=== PATIENT | female | born 1990 | race Caucasian/White ===

== ENCOUNTER 2023-05-12 06:50 | Inpatient (IN) | payer MEDICAID ==
[~2023-05-12] VITALS: Ht 162.6 cm; Wt 92.1 kg
[2023-05-12 10:15] VITALS: BP 117/75; TEMP 98.6; O2SAT 97
[2023-05-12] MEDS ORDERED: ACETAMINOPHEN 325 MG TABLET PO PRN (13:00)
[2023-05-12] MEDS ORDERED: ONDANSETRON HCL/PF 4 MG/2 ML VIAL IVP PRN (13:00)
[2023-05-12] MEDS ORDERED: MAGNESIUM HYDROXIDE 30 ML UDC PO PRN (13:00)
[2023-05-12] MEDS ORDERED: MORPHINE SULFATE INJ 2 MG/ML DISP.SYRIN IV PRN (13:00)
[2023-05-12] MEDS: IV D5/0.45 NACL 1,000 ML IV PRN (13:05)
[2023-05-12 16:00] VITALS: BP 109/72; TEMP 98.6; O2SAT 97
[2023-05-12 16:37] LABS: CALCIUM, SERUM 8.5 mg/dL (8.5-10.1); CREATININE 0.7 mg/dL (0.6-1.3); POTASSIUM 3.6 mmol/L (3.5-5.1)
[2023-05-12] MEDS: PIPERACILLIN /TAZOBACTAM 3.375 G in IV D5W 100 ML IV SCH (17:11)
[2023-05-12] MEDS ORDERED: PIPERACILLIN /TAZOBACTAM 3.375 G in IV D5W 50 ML IV SCH (18:00)
[2023-05-12 20:00] VITALS: BP 149/100; TEMP 97.7; O2SAT 98
[2023-05-13] MEDS ORDERED: PANTOPRAZOLE 40 MG VIAL IV SCH (09:00)
== END 2023-05-12 21:25 | disposition left against medical advice (07) ==
LOC: MED 10:00
PROVIDERS: ADMIT Nurse Practitioner Family; ATTEND Nurse Practitioner Family
DX: K83.8 Other specified diseases of biliary tract (principal); R17 Unspecified jaundice; Z53.29 Procedure and treatment not carried out because of patient's decision for other reasons; R74.01 Elevation of levels of liver transaminase levels; R10.11 Right upper quadrant pain
CPT/HCPCS: 36415; 74181-TC; 80048-TC; A4223; G0378; J2543; J3490; J7060